=== PATIENT | female | born 1975 | race Hispanic/Latino ===

== ENCOUNTER 2017-08-02 18:16 | Emergency (ER) | payer OTHER, SELFPAY ==
[~2017-08-02 18:16] MED LIST: ISOVUE-370 76%-LOCM 1 ML ONE
[2017-08-02 18:44] LABS: #Basophils 0.1 thou/uL (0.0-0.2); #Eosinphils 0.1 thou/uL (0.0-0.7); #Lymphocytes 2.4 thou/uL (1.20-3.40); #Monocytes 0.5 thou/uL (0.11-0.59); #Neutrophils 5.1 thou/uL (1.40-6.50); %Eosinophils 1.7 % (0.0-10.0); %Lymphocytes 29.4 % (21.0-51.0); %Monocytes 5.9 % (0.0-10.0); Hematocrit 44.3 % (36.0-47.0); Mean Platelet Volume 7.4 fL (7.4-10.4); White Blood Cell (WBC) Count 8.2 thou/uL (4.8-10.8)
[2017-08-02 19:03] LABS: ALT (SGPT) 42 U/L (8-55); AST (SGOT) 21 U/L (5-34); Alkaline Phosphatase 94 U/L (40-150); Anion Gap 15 mmol/L (10-20); BUN (Urea Nitrogen) 9 mg/dL (7.0-18.7); Bilirubin, Total 0.3 mg/dL (0.2-1.2); CK (CPK) 56 U/L (29-168); Calc. Creatinine Clearance 0 mL/min (70-130); Calcium 9.9 mg/dL (7.8-10.44); Carbon Dioxide 25 mmol/L (22-29); Chloride 100 mmol/L (98-107); Estimated GFR-MDRD 76; Lipase 46 U/L (8-78); Protein, Total 7.1 g/dL (6.0-8.3)
[2017-08-02 19:08] LABS: Troponin I Less than 0.010 ng/mL (< 0.028)
[2017-08-02] MEDS ORDERED: Ondansetron HCl/PF 4 MG/2 ML Vial ONE ×2 (19:31→20:38)
[2017-08-02 20:33] LABS: Bilirubin Negative (Negative); Blood, Urine Negative (Negative); Glucose, Urine (Dipstick) 250 mg/dL (Negative); Ketone, Urine Negative (Negative); Nitrite Negative (Negative); Protein, Urine (Dipstick) Negative (Neg-Trace); Urobilinogen 0.2 mg/dL (0.2-1.0)
--- NOTE | 2017-08-02 20:38 | RAD ---
RADIOGRAPH CHEST 1 VIEW: HISTORY: A 42-year-old female with acute chest pain. FINDINGS: There are no air space densities, pulmonary edema, pneumothorax, or cardiomegaly. The lateral costo phrenic angles are sharp. IMPRESSION: No acute cardiopulmonary findings. jn [] POS: [facility]
[2017-08-02] MEDS ORDERED: Lidocaine Viscous Sol 2% 15 ml UD Cup ONE (22:13)
[2017-08-02] MEDS ORDERED: Mag-Al 1200 mg/1200 mg/30 ML UDCUP ONE (22:13)
--- NOTE | 2017-08-02 22:19 | CT ---
CTA THORAX WITH CONTRAST CTA ABDOMEN WITH CONTRAST: (Computed Tomographic Angiography, chest (noncoronary) with contrast material, and image post proces sing) (Computed Tomographic Angiography, abdomen with contrast material, and image post processing) HISTORY: A 42-year-old female with acute chest pain and acute epigastric pain that radiates to the back and f lank. Rule out aortic dissection. TECHNIQUE: IV injection of iodinated contrast: Administered. Arterial phase bolus chasing technique. Scan acquisition from top of top of aortic arch to iliac crests. Sagittal and coronal 3D MIP reconstructions. FINDINGS: There is very good opacification of all the pulmonary arteries and the entire aorta. There is no pu lmonary thromboembolism. No aortic dissection, atherosclerotic plaque, aneurysm, or rupture. The t horacic and lumbar vertebral body heights are maintained, with no high grade degenerative changes. The lungs are clear. No pleural effusion, pneumothorax, cardiomegaly, pericardial effusion, mediast inal lymphadenopathy, or hilar lymphadenopathy. No destructive osseous rib lesion or sternal lesion . Diffusely low hepatic attenuation, representing fatty liver. A 6 x 5 x 2 mm right renal lower po le calculus. No hydronephrosis bilaterally. The spleen, adrenals, and pancreas are normal. Normal retrocecal appendix. No free fluid identified in the abdominal cavity. Pelvis not included. No s mall bowel dilation. No major pathology of the visualized portions of the colon. No retroperitonea l lymphadenopathy. IMPRESSION: 1. Hepatic steatosis. 2. Status post cholecystectomy. 3. Right nephrolithiasis without obstructive uropathy. 4. Normal aorta. [place][] POS: [facility]
[2017-08-02] MEDS ORDERED: Insulin Regular 300 UNITS/3 ML VIAL ONE (22:47)
== END 2017-08-02 23:51 | disposition home or self-care (01) ==
LOC: ERS 18:16
DX: K20.9 Esophagitis, unspecified (principal); E11.9 Type 2 diabetes mellitus without complications; Z79.84 Long term (current) use of oral hypoglycemic drugs
CPT/HCPCS: 36415; 71010; 71275; 80053; 81003; 82550; 82553; 83690; 84484; 85025; 93005; 96361; 96372; 96374; 96375; 96376; J1815; J2270; J2405

== ENCOUNTER 2018-05-28 13:21 | Inpatient (IN) | payer SELFPAY ==
[2018-05-28] MEDS ORDERED: Acetaminophen 500 MG TAB ONE (13:51)
[2018-05-28 14:11] LABS: Bilirubin Negative (Negative); Blood, Urine Negative (Negative); Clarity CLEAR (Clear); Glucose, Urine (Dipstick) Negative (Negative); Leukocyte Negative (Negative); Nitrite Negative (Negative); Protein, Urine (Dipstick) Negative (Neg-Trace); Specific Gravity, Urine 1.013 (1.002-1.036); Urobilinogen 0.2 mg/dL (0.2-1.0); pH, Urine 5.5 (5.0-9.0)
[2018-05-28 14:11] LABS: Hemoglobin 14.3 g/dL (12.0-16.0); Mean Corpuscular HGB CONC 32.6 g/dL (32.0-36.0); Mean Corpuscular Hemoglobin 28.9 pg (27.0-31.0); Mean Corpuscular Volume 88.5 fL (78.0-98.0); Mean Platelet Volume 7.2 fL (7.4-10.4); Platelet Count 285 thou/uL (130-400); RBC Distribution Width 11.8 % (11.5-14.5); Red Blood Cell (RBC) Count 4.94 mill/uL (4.20-5.40); White Blood Cell (WBC) Count 9.3 thou/uL (4.8-10.8)
--- NOTE | 2018-05-28 14:22 | RAD ---
PORTABLE CHEST: Date: 05/28/18 HISTORY: Cough, chills, fever, headache. FINDINGS: Heart size and mediastinum are within normal limits. Lungs are clear of infiltrates. IMPRESSION: No active intrathoracic disease. POS: [facility]
[2018-05-28 14:26] LABS: Band 16 % (5-11); Eosinophils 1 % (0-10); Lymphocytes 8 % (21-51); MDiff Complete? YES; Monocytes 1 % (0-10); Neutrophil 74 % (42-75); PLT Morphology Comment Appears Adequate; RBC Morphology Normal
[2018-05-28 14:27] LABS: ALT (SGPT) 26 U/L (8-55); AST (SGOT) 17 U/L (5-34); Albumin 4.4 g/dL (3.5-5.0); Alkaline Phosphatase 120 U/L (40-150); Anion Gap 15 mmol/L (10-20); BUN (Urea Nitrogen) 8 mg/dL (7.0-18.7); Bilirubin, Total 0.7 mg/dL (0.2-1.2); Calc. Creatinine Clearance 0 mL/min (70-130); Calcium 10.2 mg/dL (7.8-10.44); Carbon Dioxide 25 mmol/L (22-29); Chloride 96 mmol/L (98-107); Estimated GFR-MDRD 82; Globulin 3.6 g/dL (2.4-3.5); Glucose 141 mg/dL (70-105); Sodium 132 mmol/L (136-145)
[2018-05-28] MEDS ORDERED: cefTRIAXone\\ROCEPHIN 1 GM VIAL ONE (15:12)
[2018-05-28] MEDS ORDERED: ISOVUE-370 76%-LOCM 1 ML ONE (15:22)
[2018-05-28 15:43] LABS: CSF Source CSF; Clarity Clear (Clear); Tube # 4
[2018-05-28 15:46] LABS: Color Of CSF Supernatant COLORLESS (Colorless); Tube # 1; Unspun CSF Color COLORLESS (Colorless)
[2018-05-28 15:48] LABS: RBC Count - Manual 3 /cumm (None Seen); WBC/NonHematics Count - Manual 0 /cumm (0-5)
[2018-05-28 15:59] LABS: CSF, Glucose 114 mg/dl (40-70); CSF, Protein 32 mg/dL (15-40)
--- NOTE | 2018-05-28 17:12 | CT ---
CT ARTERIOGRAM CHEST WITH IV CONTRAST AND 3D MIP IMAGIN05/28/18 HISTORY: Chest pain. Dyspnea. FINDINGS: There is good CT opacification of the pulmonary arteries and thoracic aorta with normal branching of the great vessels at the aortic arch. Minimal bibasilar atelectasis. No evidence of pneumothorax or p leural effusion. No mediastinal adenopathy. IMPRESSION: No CT evidence of pulmonary embolus. POS: [facility]
[2018-05-28] MEDS ORDERED: Dextrose 5% in Water 1,000 ML IV PRN (17:13)
[2018-05-28] MEDS ORDERED: Dextrose 50% Abboject 50 ML SYRINGE SLOW IVP PRN (17:13)
[2018-05-28] MEDS ORDERED: Zolpidem Tartrate 5 MG TAB PO PRN (17:13)
--- NOTE | 2018-05-28 17:14 | PDOC.EVN ---
Event Note - Event Note Event Note: CT chest -no PE. CSF neg
[2018-05-28] MEDS: Sodium Chloride 0.9% 1,000 ML IV SCH (17:53)
[2018-05-28 18:12] LABS: Lactic Acid 1.8 mmol/L (0.5-2.2)
--- NOTE | 2018-05-28 18:57 | HP ---
PRIMARY CARE PROVIDER: Dr. Ontiveros at [facility]. She does not know the doctor's name, but it is a [facility] physician. CHIEF COMPLAINT: Referred to the [facility] by [facility] for 1 week. HISTORY OF PRESENT ILLNESS: The patient got sick a week ago on Friday, today is . She has h ad hard shaking chills, headache. This is going on off and on for a week. The headache is frontal n uchal. It is bad at times, gone at other times. She has had whole body aches. She has had diarrhea for 7 days, maybe 5-6+ times a day, it is watery. She has had no vomiting. She has had some vague lower abdominal pain for 24 hours, some low back pain. Her fevers have been as high as 102. S he has had some shortness of breath with the present illness. PAST MEDICAL HISTORY: Really Pertinent for diabetes mellitus type 2 on metformin 1000 mg twice a day and glimepiride 2 mg t.i.d. ALLERGIES: She has no medical allergies. PAST SURGICAL HISTORY: Tubal ligation and cholecystectomy. SOCIAL HISTORY: She is , states she has a 1-month-old child. No tobacco. Alcohol about once a month. No illicit drugs. FAMILY HISTORY: Her father and a sister have diabetes. Otherwise, no inherited diseases. REVIEW OF SYSTEMS: General: She is lightheaded arising, but no fainting. Eyes: No double vision, blurred vision, flashing lights or photophobia. ENT: No ear pain or drainage. No nasal bleeding. No trouble swallowing. Cardiac: No pressure, chest pain, orthopnea, paroxysmal nocturnal dyspnea. Respiratory: No cough, wheezing or asthma. She is short of breath at times. Gastrointestinal: See present illness. Genitourinary: No hematuria, dysuria. Musculoskeletal: Diffuse body aches. No specific muscle or joint pain. No swelling in her extremities. Neurologic: No strokes, seizures or focal weakness. Psychiatric: No anxiety, depression. Skin: No bruising, bleeding or rash. Heme/ Lymph: No tender or swollen lymph nodes in axilla, inguinal or cervical area. PHYSICAL EXAMINATION: VITAL SIGNS: In the emergency department, she had blood pressure 149/95, pulse 126, respirations 20, and temperature 102.8. GENERAL: She is alert, oriented, obviously ill woman. HEENT: Pupils equal, round, and reactive. Extraocular movements are intact. Sclerae are white. Ty mpanic membranes clear. Nose is clear. Oral mucous membranes are dry. Tongue is dry. Dental hygie ne is good. NECK: No jugular venous distention, adenopathy or thyromegaly. Supple. She can touch her chin to h er chest. CHEST: Clear to auscultation and percussion. HEART: Regular rate and rhythm. First and second heart sounds are clear. There are no appreciated murmurs or gallops. ABDOMEN: Soft, bowel sounds are normal. There is no hepatosplenomegaly, no mass, no rebound, no bru its. EXTREMITIES: Reveal no cyanosis, clubbing or edema. PULSES: Carotid, radial, femoral, and dorsalis pedis pulses intact. SKIN: Warm and dry without bruises or rash. HEME/LYMPH: No tender or swollen lymph nodes in axilla, inguinal or cervical area. NEUROLOGICAL: Cranial nerves II-XII are intact. Deep tendon reflexes symmetric. Moves all extremit ies. LABORATORY AND X-RAY FINDINGS: Chest x-ray reviewed by me, no CHF, infiltrate, cardiomegaly, etc. E KG: I cannot find one, but the report states that it is sinus tachycardia at a rate of 127 with a lo w voltage QRS, otherwise normal. LABORATORY DATA: Urinalysis is clear with no evidence of any infection. Sodium was modestly low at 132, potassium 4.0, CO2 of 25, creatinine 0.77, BUN 8, blood sugar 141. Lactic acid 3.1. Liver func tion tests normal. CBC: Hemoglobin 9.3, white count 9.3 with a significant left shift of 16 bands, hemoglobin 14.3, platelet count 285,000. A lumbar puncture has been done and the fluid analysis is p ending. A D-dimer has been ordered and is pending. ADMITTING DIAGNOSES: 1. Sepsis syndrome with fever, tachycardia, shortness of breath, leukocytosis with left shift. 2. Diarrhea. 3. Lactic acidosis. 4. Diabetes mellitus type 2 without evidence of ketoacidosis. PLAN: Blood and urine cultures have been done. LP results are pending. Stool studies for C. diff, Shiga toxin and culture have been ordered. The patient has an Accu-Chek sliding scale ordered. Her oral medicines will be held at the present time. She will be started on a combination of Levaquin an d Rocephin in the acute phase. This is of course subject to change if the fluid indicates a ba cterial pneumonia; however, the fluids were clear and I suspect they will have no cells. Patient jimmie l require frequent reevaluations. Morphine sulfate will be used for pain if in fact the hydrocodone is not adequate.
[2018-05-28] MEDS: Ondansetron ODT 4 MG TAB PO PRN (20:15)
[2018-05-28] MEDS: Acetaminophen 325 MG TAB PO PRN (20:15)
[2018-05-28] MEDS: HYDROcodone/Acetaminophen 5/325 mg Tablet PO PRN (21:43)
[2018-05-28 22:59] VITALS: BMI 38.8
[2018-05-29] MEDS ORDERED: cefTRIAXone\\ROCEPHIN 2 GM in Sodium Chloride 0.9% 100 ML IVPB SCH (03:00)
[2018-05-29] MEDS: Acetaminophen 325 MG TAB PO PRN ×3 (03:27→18:29)
[2018-05-29] MEDS: HYDROcodone/Acetaminophen 5/325 mg Tablet PO PRN ×3 (04:21→21:45)
[2018-05-29] MEDS: Ondansetron ODT 4 MG TAB PO PRN (04:22)
[2018-05-29 05:05] LABS: Anion Gap 13 mmol/L (10-20); BUN (Urea Nitrogen) 6 mg/dL (7.0-18.7); Calc. Creatinine Clearance 130 mL/min (70-130); Calcium 9.1 mg/dL (7.8-10.44); Carbon Dioxide 24 mmol/L (22-29); Chloride 101 mmol/L (98-107); Estimated GFR-MDRD 85; Glucose 267 mg/dL (70-105); Potassium 3.6 mmol/L (3.5-5.1); Sodium 134 mmol/L (136-145)
[2018-05-29 06:20] LABS: Band 13 % (5-11); Hemoglobin 13.1 g/dL (12.0-16.0); Lymphocytes 2 % (21-51); MDiff Complete? YES; Mean Corpuscular Volume 87.9 fL (78.0-98.0); Mean Platelet Volume 7.2 fL (7.4-10.4); Monocytes 6 % (0-10); Neutrophil 79 % (42-75); PLT Morphology Comment Appears Adequate; Platelet Count 227 thou/uL (130-400); RBC Morphology Normal; Red Blood Cell (RBC) Count 4.51 mill/uL (4.20-5.40); White Blood Cell (WBC) Count 8.8 thou/uL (4.8-10.8)
[2018-05-29] MEDS: Sodium Chloride 0.9% 1,000 ML IV SCH ×2 (06:36→15:01)
[2018-05-29 08:48] LABS: Hemoglobin A1c 9.9 % (4.0-6.0)
[2018-05-29] MEDS ORDERED: Insulin Glargine 5 UNITS in Pre-Filled Syringe 1 EACH SC SCH (09:00)
[2018-05-29] MEDS: Morphine 4 MG/ML VIAL SLOW IVP PRN (12:48)
[2018-05-29] MEDS: HumaLOG 300 UNITS/3 ML VIAL SC PRN ×2 (12:49→16:55)
[2018-05-29] MEDS ORDERED: Cyclobenzaprine 10 MG TAB PO SCH (13:14)
[2018-05-29] MEDS ORDERED: Fioricet 325/50/40 mg Tablet PO PRN (13:14)
[2018-05-29] MEDS ORDERED: Metoclopramide HCl 10 MG/2 ML VIAL IVP SCH (13:15)
[2018-05-29] MEDS: Cyclobenzaprine 10 MG TAB PO SCH ×2 (15:02→21:44)
--- NOTE | 2018-05-29 21:02 | PDOC.PN ---
- Subjective Encounter Start Date: 05/29/18 Encounter Start Time: 11:00 Subjective: pt complains of headache - Objective Resuscitation Status: Resuscitation Status FULL:Full Resuscitation Vital Signs & Weight: Vital Signs (12 hours) Temp Pulse Resp BP BP Pulse Ox 05/29/18 16:00 98.5 F 91 20 113/74 94 L 05/29/18 12:34 101.1 F H 05/29/18 11:00 102.6 F H 114 H 16 125/79 93 L Weight Admit Weight 186 lb 3.2 oz Weight 186 lb I&O: 05/28/18 05/29/18 05/30/18 06:59 06:59 06:59 Intake Total 3560 Balance 3560 Result Diagrams: 05/30/18 07:02 05/30/18 07:02 Additional Labs: Accuchecks 05/29/18 05/29/18 05/29/18 19:22 16:09 11:25 POC Glucose 211 H 369 H 236 H 05/29/18 05/29/18 05/28/18 08:38 04:27 19:49 POC Glucose 244 H 256 H 202 H Phys Exam - Physical Examination HEENT: PERRLA, moist MMs, sclera anicteric, TM's clear, oral pharynx no lesions , 2+ tonsils Neck: no nodes, no JVD, supple, full ROM Respiratory: no wheezing, no rales, no rhonchi, wheezing present, clear to auscultation bilateral Cardiovascular: RRR, no significant murmur, no rub, gallop, irregular Gastrointestinal: soft, non-tender, no distention, positive bowel sounds has headache Dx/Plan (1) Sepsis Code(s): A41.9 - SEPSIS, UNSPECIFIED ORGANISM Status: Acute (2) Bacteremia Code(s): R78.81 - BACTEREMIA Status: Acute (3) Head ache Code(s): R51 - HEADACHE Status: Acute (4) Diabetes Code(s): E11.9 - TYPE 2 DIABETES MELLITUS WITHOUT COMPLICATIONS Status: Acute - Plan will continue abx for now, ua normal but cx indicated ecoli. ID consulted -: pt's headache tx with reglan and fiorcet. LP no indicated of meningits * . Review of Systems - Review of Systems Respiratory: negative: Cough, Dry, Shortness of Breath, Hemoptysis, SOB with Excertion, Pleuritic Pain, Sputum, Wheezing Cardiovascular: negative: chest pain, palpitations, orthopnea, paroxysmal nocturnal dyspnea, edema, light headedness, other Gastrointestinal: negative: Nausea, Vomiting, Abdominal Pain, Diarrhea, Constipation, Melena, Hematochezia, Other Genitourinary: negative: Dysuria, Frequency, Incontinence, Hematuria, Retention , Other - Medications/Allergies Allergies/Adverse Reactions: Allergies Allergy/AdvReac Type Severity Reaction Status Date / Time No Known Allergies Allergy Unverified 12/05/14 11:43 Medications: Current Medications Acetaminophen (Tylenol) 650 mg PO Q4H PRN PRN Reason: Headache/Fever or Pain Last Admin: 05/30/18 04:18 Dose: 650 mg Acetaminophen/Butalbital/Caffeine (Fioricet) 1 tab PO Q4H PRN PRN Reason: Headache Stop: 06/03/18 13:15 Hydrocodone Bitart/Acetaminophen ([place] 5/325) 1 tab PO Q4H PRN PRN Reason: Moderate Pain (4-6) Last Admin: 05/30/18 08:08 Dose: 1 tab Cyclobenzaprine HCl (Flexeril) 10 mg PO TID JOSÉ MIGUEL Last Admin: 05/30/18 08:08 Dose: 10 mg Dextrose/Water (Dextrose 50%) 25 gm SLOW IVP PRN PRN PRN Reason: Hypoglycemia Glucagon (Glucagon) 1 mg IM PRN PRN PRN Reason: Hypoglycemia Dextrose/Water (D5w) 1,000 mls @ 0 mls/hr IV .Q0M PRN PRN Reason: Hypoglycemia Sodium Chloride (Normal Saline 0.9%) 1,000 mls @ 100 mls/hr IV .Q10H JOSÉ MIGUEL Last Admin: 05/30/18 10:18 Dose: Not Given Ceftriaxone Sodium 2 gm/ (Sodium Chloride) 100 mls @ 200 mls/hr IVPB Q24HR [facility] Last Admin: 05/30/18 04:18 Dose: 100 mls Insulin Glargine 5 units/ (Miscellaneous Medication) 0.05 mls @ 0 mls/hr SC HS JOSÉ MIGUEL Insulin Glargine 10 units/ (Miscellaneous Medication) 0.1 mls @ 0 mls/hr SC QAM [facility] Last Admin: 05/30/18 08:11 Dose: 0.1 mls Insulin Human Lispro (Humalog) 0 units SC .MILD SLIDING SCALE PRN PRN Reason: Mild Correctional Scale Last Admin: 05/29/18 16:55 Dose: 6 unit Morphine Sulfate (Morphine) 4 mg SLOW IVP Q4H PRN PRN Reason: Moderate Pain (4-6) Last Admin: 05/29/18 12:48 Dose: 4 mg Ondansetron HCl (Zofran Odt) 4 mg PO Q6H PRN PRN Reason: Nausea/Vomiting Last Admin: 05/29/18 04:22 Dose: 4 mg Sodium Chloride (Flush - Normal Saline) 10 ml IVF Q12HR JOS[facility] MIGU[facility] Last Admin: 05/30/18 08:11 Dose: 10 ml Sodium Chloride (Flush - Normal Saline) 10 ml IVF PRN PRN PRN Reason: Saline Flush Zolpidem Tartrate (Ambien) 5 mg PO HSPRN PRN PRN Reason: Insomnia
[2018-05-30] MEDS: Sodium Chloride 0.9% 1,000 ML IV SCH ×3 (02:44→18:14)
[2018-05-30] MEDS: cefTRIAXone\\ROCEPHIN 2 GM in Sodium Chloride 0.9% 100 ML IVPB SCH (04:18)
[2018-05-30] MEDS: Acetaminophen 325 MG TAB PO PRN ×2 (04:18→14:47)
[2018-05-30 07:26] LABS: #Eosinphils 0.1 thou/uL (0.0-0.7); #Lymphocytes 1.1 thou/uL (1.20-3.40); #Monocytes 0.3 thou/uL (0.11-0.59); %Basophils 0.3 % (0.0-1.0); %Eosinophils 1.1 % (0.0-10.0); %Lymphocytes 20.4 % (21.0-51.0); %Monocytes 6.1 % (0.0-10.0); %Neutrophils 72.3 % (42.0-75.0); Hemoglobin 11.2 g/dL (12.0-16.0); Mean Corpuscular Hemoglobin 30.1 pg (27.0-31.0); Mean Corpuscular Volume 88.6 fL (78.0-98.0); Mean Platelet Volume 7.1 fL (7.4-10.4); Platelet Count 181 thou/uL (130-400); RBC Distribution Width 11.7 % (11.5-14.5); Red Blood Cell (RBC) Count 3.71 mill/uL (4.20-5.40); White Blood Cell (WBC) Count 5.5 thou/uL (4.8-10.8)
[2018-05-30 07:38] LABS: Anion Gap 5 mmol/L (10-20); BUN (Urea Nitrogen) 5 mg/dL (7.0-18.7); CRP (Inflammatory) 19.77 mg/dL (= or < 0.5); Calc. Creatinine Clearance 148 mL/min (70-130); Calcium 7.9 mg/dL (7.8-10.44); Carbon Dioxide 30 mmol/L (22-29); Chloride 103 mmol/L (98-107); Estimated GFR-MDRD Greater than 90; Glucose 208 mg/dL (70-105); Potassium 3.7 mmol/L (3.5-5.1); Sodium 134 mmol/L (136-145)
[2018-05-30] MEDS: Cyclobenzaprine 10 MG TAB PO SCH ×3 (08:08→20:35)
[2018-05-30] MEDS: HYDROcodone/Acetaminophen 5/325 mg Tablet PO PRN (08:08)
[2018-05-30] MEDS: Insulin Glargine 10 UNITS in Pre-Filled Syringe 1 EACH SC SCH (08:11)
--- NOTE | 2018-05-30 14:12 | PDOC.PN ---
- Subjective Encounter Start Date: 05/30/18 Encounter Start Time: 11:30 Subjective: pt up in bed states she feels much better today - Objective Resuscitation Status: Resuscitation Status FULL:Full Resuscitation Vital Signs & Weight: Vital Signs (12 hours) Temp Pulse Resp BP BP Pulse Ox 05/30/18 11:31 99.3 F 92 20 111/72 93 L 05/30/18 08:00 98.6 F 96 18 97 05/30/18 07:43 98.6 F 96 18 133/82 93 L 05/30/18 04:00 101.5 F H 102 H 18 122/75 92 L Weight Admit Weight 186 lb 3.2 oz Weight 186 lb I&O: 05/29/18 05/30/18 05/31/18 06:59 06:59 06:59 Intake Total 3560 480 Balance 3560 480 Result Diagrams: 05/30/18 07:02 05/30/18 07:02 Additional Labs: Accuchecks 05/30/18 05/30/18 05/29/18 11:29 04:22 19:22 POC Glucose 262 H 200 H 211 H 05/29/18 16:09 POC Glucose 369 H Phys Exam - Physical Examination HEENT: PERRLA, moist MMs, sclera anicteric, TM's clear, oral pharynx no lesions , 2+ tonsils Neck: no nodes, no JVD, supple, full ROM Respiratory: no wheezing, no rales, no rhonchi, wheezing present, clear to auscultation bilateral Cardiovascular: RRR, no significant murmur, no rub, gallop, irregular Gastrointestinal: soft, non-tender, no distention, positive bowel sounds Musculoskeletal: no edema, pulses present, edema present Dx/Plan (1) Sepsis Code(s): A41.9 - SEPSIS, UNSPECIFIED ORGANISM Status: Acute (2) Bacteremia Code(s): R78.81 - BACTEREMIA Status: Acute (3) Head ache Code(s): R51 - HEADACHE Status: Acute (4) Diabetes Code(s): E11.9 - TYPE 2 DIABETES MELLITUS WITHOUT COMPLICATIONS Status: Acute - Plan spoke with ID who recommended ctabd/pel to rule out any -: stone. will continue abx and fluids. she feels better today -: insulin increased for better sugar control * . Review of Systems - Review of Systems ENT: negative: Ear Pain, Ear Discharge, Nose Pain, Nose Discharge, Nose Congestion, Mouth Pain, Mouth Swelling, Throat Pain, Throat Swelling, Other Cardiovascular: negative: chest pain, palpitations, orthopnea, paroxysmal nocturnal dyspnea, edema, light headedness, other Gastrointestinal: negative: Nausea, Vomiting, Abdominal Pain, Diarrhea, Constipation, Melena, Hematochezia, Other Genitourinary: negative: Dysuria, Frequency, Incontinence, Hematuria, Retention , Other - Medications/Allergies Allergies/Adverse Reactions: Allergies Allergy/AdvReac Type Severity Reaction Status Date / Time No Known Allergies Allergy Unverified 12/05/14 11:43 Medications: Current Medications Acetaminophen (Tylenol) 650 mg PO Q4H PRN PRN Reason: Headache/Fever or Pain Last Admin: 05/30/18 04:18 Dose: 650 mg Acetaminophen/Butalbital/Caffeine (Fioricet) 1 tab PO Q4H PRN PRN Reason: Headache Stop: 06/03/18 13:15 Hydrocodone Bitart/Acetaminophen ([place] 5/325) 1 tab PO Q4H PRN PRN Reason: Moderate Pain (4-6) Last Admin: 05/30/18 08:08 Dose: 1 tab Cyclobenzaprine HCl (Flexeril) 10 mg PO TID JOSÉ MIGUEL Last Admin: 05/30/18 08:08 Dose: 10 mg Dextrose/Water (Dextrose 50%) 25 gm SLOW IVP PRN PRN PRN Reason: Hypoglycemia Glucagon (Glucagon) 1 mg IM PRN PRN PRN Reason: Hypoglycemia Dextrose/Water (D5w) 1,000 mls @ 0 mls/hr IV .Q0M PRN PRN Reason: Hypoglycemia Sodium Chloride (Normal Saline 0.9%) 1,000 mls @ 100 mls/hr IV .Q10H JOS[facility] MIGU[facility] Last Admin: 05/30/18 10:18 Dose: Not Given Ceftriaxone Sodium 2 gm/ (Sodium Chloride) 100 mls @ 200 mls/hr IVPB Q24HR JOSÉ MIGUEL Last Admin: 05/30/18 04:18 Dose: 100 mls Insulin Glargine 5 units/ (Miscellaneous Medication) 0.05 mls @ 0 mls/hr SC HS JOSÉ MIGUEL Insulin Glargine 10 units/ (Miscellaneous Medication) 0.1 mls @ 0 mls/hr SC QAM [facility] Last Admin: 05/30/18 08:11 Dose: 0.1 mls Insulin Human Lispro (Humalog) 0 units SC .MILD SLIDING SCALE PRN PRN Reason: Mild Correctional Scale Last Admin: 05/29/18 16:55 Dose: 6 unit Morphine Sulfate (Morphine) 4 mg SLOW IVP Q4H PRN PRN Reason: Moderate Pain (4-6) Last Admin: 05/29/18 12:48 Dose: 4 mg Ondansetron HCl (Zofran Odt) 4 mg PO Q6H PRN PRN Reason: Nausea/Vomiting Last Admin: 05/29/18 04:22 Dose: 4 mg Sodium Chloride (Flush - Normal Saline) 10 ml IVF Q12HR [facility] Last Admin: 05/30/18 08:11 Dose: 10 ml Sodium Chloride (Flush - Normal Saline) 10 ml IVF PRN PRN PRN Reason: Saline Flush Zolpidem Tartrate (Ambien) 5 mg PO HSPRN PRN PRN Reason: Insomnia
--- NOTE | 2018-05-30 15:11 | CT ---
CT ABDOMEN AND PELVIS WITHOUT CONTRAST: HISTORY: Nephrolithiasis, nausea, vomiting, fever. FINDINGS: Absence of oral and IV contrast reduces the sensitivity of the exam, particularly for evaluation of s olid organs involved. There are tiny bilateral pleural effusions with adjacent atelectatic changes. No free air or free fl uid is seen in the abdomen. The patient is post cholecystectomy. The liver demonstrates decreased a ttenuation compared to the spleen consistent with fatty infiltration. Bilateral renal calculi are present. No calculi are seen in the urinary bladder or the right ureter. There is a 2 mm calcific density in the pelvis which may either represent a phlebolith or a nonobst ructing calculus at the left UVJ. There are vascular calcifications without evidence of aneurysmal dilatation of the abdominal aorta. Uterus is present. Mild degenerative changes are seen in the spine. A normal-appearing appendix is seen. A tiny amount of free fluid is seen in the pelvis. IMPRESSION: 1. Nonobstructing bilateral renal calculi. 2. A 2 mm nonobstructing calculus at the left ureterovesical junction versus pelvic phlebolith. 3. Fatty liver. 4. Tiny pleural effusions with adjacent atelectatic changes. POS: [facility]
--- NOTE | 2018-05-30 18:15 | CON ---
DATE OF CONSULTATION: 05/30/2018 REASON FOR CONSULTATION: Bacteremia. HISTORY OF PRESENT ILLNESS: A 43-year-old, who has a history of type 2 diabetes and was admitted wit h a 1-week history of chills and headaches and abdominal pain. She describes the abdominal pain as d iffuse and not favoring one or the other site. She also describes back pain concomitantly. The [place] ent had some diarrhea for many days which was watery, but no blood, no vomiting. On arrival, she had a blood pressure 140/90 and she was tachycardic with a temperature of 102.8. She had a spinal tap b ecause of concern of meningitis, but that was ruled out. Urinalysis was fairly unremarkable. Initia l impression was sepsis of unknown etiology. She was given broad spectrum coverage and then we have now positive urine and blood cultures with the same organism, which is E. coli with a broad susceptib ility profile. The urine culture had [id number] CFUs per mL. Repeat blood cultures from 8 have been negative thus far. The diarrhea has ceased and the patient is currently receiving ceftri axone. She is still feeling unwell, but better than before. No headaches anymore, maybe mild headac hes at this time. No visual symptoms, no nasal symptoms or earache. No sore throat, odynophagia, or dysphagia. Mild cough. No chest pain, no dyspnea. The abdominal pain is improved. She has never had dysuria or hematuria. No joint symptoms. No skin disorder. PAST MEDICAL HISTORY: Includes type 2 diabetes, previous history of nephrolithiasis. This was a ser endipitous finding few years ago when she had a CT scan of her abdomen. ALLERGIES: None. PAST SURGICAL HISTORY: Tubal ligation, cholecystectomy. SOCIAL HISTORY: , 1-month child, never smoker. FAMILY HISTORY: Diabetes. CURRENT MEDICATIONS: Include Tylenol, Fioricet, [place], ceftriaxone, Flexeril, glucagon, insulin, Zof ran, zolpidem. PHYSICAL EXAMINATION: VITAL SIGNS: T-max 101.5-102.6, now 99.3; blood pressure 111/72; pulse 92; respirations 18-20; O2 sa t 93% to 97%. SKIN: Not remarkable. The patient has a peripheral IV access and is voiding spontaneously. No lymp hadenopathy. HEENT: Ocular movements conjugate. Nasal passages patent. Oral cavity normal. NECK: Supple. LUNGS: Symmetric clear breath sounds. HEART: S1, S2, regular rate. ABDOMEN: Soft with mild tenderness in various areas. No rebound tenderness, no organomegaly, no asc ites. No bladder distention. Some CVA tenderness. EXTREMITIES: No joint inflammatory activity. NEUROLOGIC: Nonfocal including cognitive function. LABORATORY DATA AND IMAGING: White cell count was 9.3 and now 5.5, hemoglobin was 14 and now 11, MCV 88, platelets 181. Differential 74% neutrophils, 16% bands, now 72% neutrophils, 20% lymphocytes. INR was not done. Chemistry on arrival with sodium 132, creatinine 0.77, calcium 10.2. Liver profil e normal. Albumin 4.4 and globulin 3.6. Urinalysis was normal. CSF was not remarkable. Microbiolo gy panel described above and she had a CT angio on arrival of the chest, which was not remarkable. N ow, she has had an abdomen and pelvis CT. I have reviewed the scan, the interpretation is not availa ble yet, but I was able to see areas of nephrolithiasis in the right kidney within the organ itself i n the pelvis. The right kidney seems to be bigger than the left. I am not sure about the presence o f ureteral dilation, waiting on that. The bladder was quite full of urine. ASSESSMENT: 1. Type 2 diabetes. 2. History of nephrolithiasis. 3. Bacteremia with positive urine cultures. DISCUSSION: The patient has a distended bladder and might have distention of the ureter on the right side, I am not sure about that. She does have stones in the right kidney and I am waiting for the f inal interpretation. Despite of the normal urinalysis, the most likely scenario here is hyperacute p yelonephritis without actual cystitis. She may have a neurogenic bladder with urinary retention as a prodrome to this syndrome. We will wait for the final interpretation of the CT scan and then procee d accordingly. This patient will be eligible for outpatient therapy with oral ciprofloxacin for 2 we eks, but the main issue here is to define the urological substrate of this infection. It seems like she has been hyperacute and without actual cystitis. That is why she did not have symptoms of dysuri a. The other possibility is that she has neuropathy in the abdominal area and therefore cannot feel the symptoms are typically associated with cystitis due to her diabetes mellitus. We will wait for t he final interpretation of the CT study.
[2018-05-30] MEDS ORDERED: Insulin Glargine 5 UNITS in Pre-Filled Syringe 1 EACH SC SCH (21:00)
[2018-05-31] MEDS: Acetaminophen 325 MG TAB PO PRN ×2 (00:27→08:22)
[2018-05-31] MEDS: Morphine 4 MG/ML VIAL SLOW IVP PRN (00:27)
[2018-05-31] MEDS: cefTRIAXone\\ROCEPHIN 2 GM in Sodium Chloride 0.9% 100 ML IVPB SCH (04:05)
[2018-05-31] MEDS: Sodium Chloride 0.9% 1,000 ML IV SCH ×2 (05:30→11:28)
[2018-05-31 05:32] LABS: #Eosinphils 0.1 thou/uL (0.0-0.7); #Lymphocytes 1.4 thou/uL (1.20-3.40); #Monocytes 0.3 thou/uL (0.11-0.59); #Neutrophils 4.4 thou/uL (1.40-6.50); %Basophils 0.4 % (0.0-1.0); %Eosinophils 1.6 % (0.0-10.0); %Lymphocytes 22.4 % (21.0-51.0); %Monocytes 4.4 % (0.0-10.0); %Neutrophils 71.2 % (42.0-75.0); Hemoglobin 10.9 g/dL (12.0-16.0); Mean Corpuscular HGB CONC 33.6 g/dL (32.0-36.0); Mean Corpuscular Hemoglobin 29.8 pg (27.0-31.0); Mean Corpuscular Volume 88.8 fL (78.0-98.0); Mean Platelet Volume 7.2 fL (7.4-10.4); Platelet Count 207 thou/uL (130-400); RBC Distribution Width 11.9 % (11.5-14.5); Red Blood Cell (RBC) Count 3.64 mill/uL (4.20-5.40); White Blood Cell (WBC) Count 6.2 thou/uL (4.8-10.8)
[2018-05-31] MEDS: Insulin Glargine 10 UNITS in Pre-Filled Syringe 1 EACH SC SCH (08:22)
[2018-05-31] MEDS: Cyclobenzaprine 10 MG TAB PO SCH ×3 (08:24→20:25)
[2018-05-31] MEDS ORDERED: Enoxaparin Sodium 40 MG/0.4 ML SYRINGE SC SCH (10:45)
[2018-05-31] MEDS: HumaLOG 300 UNITS/3 ML VIAL SC PRN (11:29)
--- NOTE | 2018-05-31 17:28 | PDOC.PN ---
- Subjective Encounter Start Date: 05/31/18 Encounter Start Time: 11:00 Subjective: pt up in bed no complains - Objective Resuscitation Status: Resuscitation Status FULL:Full Resuscitation Vital Signs & Weight: Vital Signs (12 hours) Temp Pulse Resp BP Pulse Ox 05/31/18 11:30 98.5 F 05/31/18 08:00 101.1 F H 114 H 18 139/84 95 Weight Admit Weight 186 lb 3.2 oz Weight 186 lb I&O: 05/30/18 05/31/18 06/01/18 06:59 06:59 06:59 Intake Total 720 480 Balance 720 480 Result Diagrams: 05/31/18 05:09 05/30/18 07:02 Additional Labs: Accuchecks 05/31/18 05/31/18 11:28 06:11 POC Glucose 307 H 159 H Phys Exam - Physical Examination HEENT: PERRLA, moist MMs, sclera anicteric, TM's clear, oral pharynx no lesions , 2+ tonsils Neck: no nodes, no JVD, supple, full ROM Respiratory: no wheezing, no rales, no rhonchi, wheezing present, clear to auscultation bilateral Cardiovascular: RRR, no significant murmur, no rub, gallop, irregular Gastrointestinal: soft, non-tender, no distention, positive bowel sounds Dx/Plan (1) Sepsis Code(s): A41.9 - SEPSIS, UNSPECIFIED ORGANISM Status: Acute (2) Bacteremia Code(s): R78.81 - BACTEREMIA Status: Acute (3) Head ache Code(s): R51 - HEADACHE Status: Acute (4) Diabetes Code(s): E11.9 - TYPE 2 DIABETES MELLITUS WITHOUT COMPLICATIONS Status: Acute - Plan pt still had fever this am -: will continue abx for now -: pt clinically is improving -: headache is better -: ct indicated stones non obst, bladder scan indicated 150ml * . Review of Systems - Review of Systems Respiratory: negative: Cough, Dry, Shortness of Breath, Hemoptysis, SOB with Excertion, Pleuritic Pain, Sputum, Wheezing Cardiovascular: negative: chest pain, palpitations, orthopnea, paroxysmal nocturnal dyspnea, edema, light headedness, other Gastrointestinal: negative: Nausea, Vomiting, Abdominal Pain, Diarrhea, Constipation, Melena, Hematochezia, Other Genitourinary: negative: Dysuria, Frequency, Incontinence, Hematuria, Retention , Other - Medications/Allergies Allergies/Adverse Reactions: Allergies Allergy/AdvReac Type Severity Reaction Status Date / Time No Known Allergies Allergy Unverified 12/05/14 11:43 Medications: Current Medications Acetaminophen (Tylenol) 650 mg PO Q4H PRN PRN Reason: Headache/Fever or Pain Last Admin: 05/31/18 08:22 Dose: 650 mg Acetaminophen/Butalbital/Caffeine (Fioricet) 1 tab PO Q4H PRN PRN Reason: Headache Stop: 06/03/18 13:15 Last Admin: 05/31/18 08:22 Dose: 1 tab Hydrocodone Bitart/Acetaminophen ([place] 5/325) 1 tab PO Q4H PRN PRN Reason: Moderate Pain (4-6) Last Admin: 05/30/18 08:08 Dose: 1 tab Cyclobenzaprine HCl (Flexeril) 10 mg PO TID [facility] Last Admin: 05/31/18 14:57 Dose: 10 mg Dextrose/Water (Dextrose 50%) 25 gm SLOW IVP PRN PRN PRN Reason: Hypoglycemia Enoxaparin Sodium (Lovenox) 40 mg SC 0900 [facility] Glucagon (Glucagon) 1 mg IM PRN PRN PRN Reason: Hypoglycemia Dextrose/Water (D5w) 1,000 mls @ 0 mls/hr IV .Q0M PRN PRN Reason: Hypoglycemia Sodium Chloride (Normal Saline 0.9%) 1,000 mls @ 100 mls/hr IV .Q10H [facility] Last Admin: 05/31/18 11:28 Dose: 1,000 mls Ceftriaxone Sodium 2 gm/ (Sodium Chloride) 100 mls @ 200 mls/hr IVPB Q24HR [facility] Last Admin: 05/31/18 04:05 Dose: 100 mls Insulin Glargine 5 units/ (Miscellaneous Medication) 0.05 mls @ 0 mls/hr SC HS [facility] Last Admin: 05/30/18 20:35 Dose: 0.05 mls Insulin Glargine 10 units/ (Miscellaneous Medication) 0.1 mls @ 0 mls/hr SC QAM [facility] Last Admin: 05/31/18 08:22 Dose: 0.1 mls Insulin Human Lispro (Humalog) 0 units SC .MILD SLIDING SCALE PRN PRN Reason: Mild Correctional Scale Last Admin: 05/31/18 11:29 Dose: 5 unit Ondansetron HCl (Zofran Odt) 4 mg PO Q6H PRN PRN Reason: Nausea/Vomiting Last Admin: 05/29/18 04:22 Dose: 4 mg Sodium Chloride (Flush - Normal Saline) 10 ml IVF Q12HR [facility] Last Admin: 05/31/18 08:24 Dose: Not Given Sodium Chloride (Flush - Normal Saline) 10 ml IVF PRN PRN PRN Reason: Saline Flush Zolpidem Tartrate (Ambien) 5 mg PO HSPRN PRN PRN Reason: Insomnia
[2018-05-31] MEDS: HYDROcodone/Acetaminophen 5/325 mg Tablet PO PRN (20:24)
[2018-05-31] MEDS: Insulin Glargine 8 UNITS in Pre-Filled Syringe 1 EACH SC SCH (20:25)
[2018-06-01] MEDS: Sodium Chloride 0.9% 1,000 ML IV SCH ×2 (03:01→11:56)
[2018-06-01] MEDS: cefTRIAXone\\ROCEPHIN 2 GM in Sodium Chloride 0.9% 100 ML IVPB SCH (03:03)
[2018-06-01] MEDS: Enoxaparin Sodium 40 MG/0.4 ML SYRINGE SC SCH (09:35)
[2018-06-01] MEDS: Cyclobenzaprine 10 MG TAB PO SCH ×3 (09:35→21:03)
[2018-06-01] MEDS: Insulin Glargine 14 UNITS in Pre-Filled Syringe 1 EACH SC SCH (09:37)
[2018-06-01] MEDS: HumaLOG 300 UNITS/3 ML VIAL SC PRN ×2 (11:57→17:23)
--- NOTE | 2018-06-01 15:53 | PDOC.PN ---
- Subjective Encounter Start Date: 06/01/18 Encounter Start Time: 10:30 Subjective: pt up in bed no complains - Objective Resuscitation Status: Resuscitation Status FULL:Full Resuscitation Vital Signs & Weight: Vital Signs (12 hours) Temp Pulse Resp BP Pulse Ox 06/01/18 08:00 98.8 F 93 16 93 L 06/01/18 07:55 98.8 F 93 16 135/82 95 Weight Admit Weight 186 lb 3.2 oz Weight 186 lb I&O: 05/31/18 06/01/18 06/02/18 06:59 06:59 06:59 Intake Total 720 720 Balance 720 720 Result Diagrams: 05/31/18 05:09 05/30/18 07:02 Additional Labs: Accuchecks 06/01/18 06/01/18 05/31/18 11:24 05:26 19:27 POC Glucose 310 H 234 H 213 H 05/31/18 16:39 POC Glucose 186 H Phys Exam - Physical Examination HEENT: PERRLA, moist MMs, sclera anicteric, TM's clear, oral pharynx no lesions , 2+ tonsils Neck: no nodes, no JVD, supple, full ROM Respiratory: no wheezing, no rales, no rhonchi, wheezing present, clear to auscultation bilateral Cardiovascular: RRR, no significant murmur, no rub, gallop, irregular Gastrointestinal: soft, non-tender, no distention, positive bowel sounds Dx/Plan (1) Sepsis Code(s): A41.9 - SEPSIS, UNSPECIFIED ORGANISM Status: Acute (2) Bacteremia Code(s): R78.81 - BACTEREMIA Status: Acute (3) Head ache Code(s): R51 - HEADACHE Status: Acute (4) Diabetes Code(s): E11.9 - TYPE 2 DIABETES MELLITUS WITHOUT COMPLICATIONS Status: Acute - Plan pt needs to be afebrile for 24hr before discharge -: will continue abx for now -: possible discharge in am * . Review of Systems - Review of Systems Respiratory: negative: Cough, Dry, Shortness of Breath, Hemoptysis, SOB with Excertion, Pleuritic Pain, Sputum, Wheezing Cardiovascular: negative: chest pain, palpitations, orthopnea, paroxysmal nocturnal dyspnea, edema, light headedness, other Gastrointestinal: negative: Nausea, Vomiting, Abdominal Pain, Diarrhea, Constipation, Melena, Hematochezia, Other Genitourinary: negative: Dysuria, Frequency, Incontinence, Hematuria, Retention , Other - Medications/Allergies Allergies/Adverse Reactions: Allergies Allergy/AdvReac Type Severity Reaction Status Date / Time No Known Allergies Allergy Unverified 12/05/14 11:43 Medications: Current Medications Acetaminophen (Tylenol) 650 mg PO Q4H PRN PRN Reason: Headache/Fever or Pain Last Admin: 05/31/18 08:22 Dose: 650 mg Acetaminophen/Butalbital/Caffeine (Fioricet) 1 tab PO Q4H PRN PRN Reason: Headache Stop: 06/03/18 13:15 Last Admin: 05/31/18 08:22 Dose: 1 tab Hydrocodone Bitart/Acetaminophen ([place] 5/325) 1 tab PO Q4H PRN PRN Reason: Moderate Pain (4-6) Last Admin: 05/31/18 20:24 Dose: 1 tab Cyclobenzaprine HCl (Flexeril) 10 mg PO TID [facility] Last Admin: 06/01/18 09:35 Dose: 10 mg Dextrose/Water (Dextrose 50%) 25 gm SLOW IVP PRN PRN PRN Reason: Hypoglycemia Enoxaparin Sodium (Lovenox) 40 mg SC 0900 [facility] Last Admin: 06/01/18 09:35 Dose: 40 mg Glucagon (Glucagon) 1 mg IM PRN PRN PRN Reason: Hypoglycemia Dextrose/Water (D5w) 1,000 mls @ 0 mls/hr IV .Q0M PRN PRN Reason: Hypoglycemia Sodium Chloride (Normal Saline 0.9%) 1,000 mls @ 100 mls/hr IV .Q10H [facility] Last Admin: 06/01/18 11:56 Dose: 1,000 mls Ceftriaxone Sodium 2 gm/ (Sodium Chloride) 100 mls @ 200 mls/hr IVPB Q24HR [facility] Last Admin: 06/01/18 03:03 Dose: 100 mls Insulin Glargine 8 units/ (Miscellaneous Medication) 0.08 mls @ 0 mls/hr SC HS [facility] Last Admin: 05/31/18 20:25 Dose: 0.08 mls Insulin Glargine 14 units/ (Miscellaneous Medication) 0.14 mls @ 0 mls/hr SC QAM [facility] Last Admin: 06/01/18 09:37 Dose: 0.14 mls Insulin Human Lispro (Humalog) 0 units SC .MILD SLIDING SCALE PRN PRN Reason: Mild Correctional Scale Last Admin: 06/01/18 11:57 Dose: 310 unit Ondansetron HCl (Zofran Odt) 4 mg PO Q6H PRN PRN Reason: Nausea/Vomiting Last Admin: 05/29/18 04:22 Dose: 4 mg Sodium Chloride (Flush - Normal Saline) 10 ml IVF Q12HR [facility] Last Admin: 06/01/18 09:35 Dose: 10 ml Sodium Chloride (Flush - Normal Saline) 10 ml IVF PRN PRN PRN Reason: Saline Flush Zolpidem Tartrate (Ambien) 5 mg PO HSPRN PRN PRN Reason: Insomnia
[2018-06-01] MEDS: Acetaminophen 325 MG TAB PO PRN (17:22)
--- NOTE | 2018-06-01 19:23 | PRG ---
DATE OF SERVICE: 06/01/2018 SUBJECTIVE: Ms. Earl is feeling better. Finally, she has no shortness of breath, no abdominal pain, no diarrhea. No genitourinary symptoms anymore. PHYSICAL EXAMINATION: VITAL SIGNS: T-max 100, now 98.8, postvoid residual was zero. GENERAL: Awake, alert. LUNGS: Clear. HEART: S1, S2, regular rate. ABDOMEN: Soft, without tenderness. LABORATORY DATA: White cell count 6.2, hemoglobin 10.9, platelets 207. Microbiology with E. coli wi th a very broad susceptibility profile. ASSESSMENT AND DISCUSSION: Type 2 diabetes, nephrolithiasis, bacteremia with positive urine cultures . The patient has hyperacute pyelonephritis associated with diabetes mellitus type [address] colonization, nonobstructive nephrolithiasis. At this point, I would consider transition to oral quinolone for discharge planning and treat for about 2 weeks. It does not appear that she has any pr oblem that needs urological intervention at this point in time.
[2018-06-01] MEDS: Insulin Glargine 8 UNITS in Pre-Filled Syringe 1 EACH SC SCH (21:03)
[2018-06-02] MEDS: cefTRIAXone\\ROCEPHIN 2 GM in Sodium Chloride 0.9% 100 ML IVPB SCH (02:32)
[2018-06-02] MEDS ORDERED: Cipro 250 MG TAB PO SCH (07:40)
[2018-06-02] MEDS ORDERED: Ciprofloxacin 500 MG TAB PO SCH ×2 (08:00→20:00)
[2018-06-02] MEDS: Cyclobenzaprine 10 MG TAB PO SCH (09:10)
[2018-06-02] MEDS: Insulin Glargine 14 UNITS in Pre-Filled Syringe 1 EACH SC SCH (09:10)
[2018-06-02] MEDS: Enoxaparin Sodium 40 MG/0.4 ML SYRINGE SC SCH (09:10)
[2018-06-02 11:59] VITALS: BP 158/99; TEMP 98.3
--- NOTE | 2018-06-02 23:20 | DIS ---
DATE OF ADMISSION: 05/28/2018 DATE OF DISCHARGE: 06/02/2018 DISCHARGE DIAGNOSES: As of the followin. Sepsis. 2. Bacteremia. 3. Urinary tract infection/pyelonephritis. 4. Headache. 5. Diabetes. HISTORY OF PRESENT ILLNESS: The patient is a very pleasant 43-year-old female who initially presente d to the hospital with complaints of shakes, chills, and headaches. The patient initially underwent LP due to the headache and fevers; however, the LP was negative. She also had a chest CAT scan that indicated no evidence of pulmonary embolism. She also had a CT abdomen and pelvis without contrast, renal protocol, which did indicate that she does have some nonobstructing bilateral renal calculi, 2- mm nonobstructing calculus in the left ureterovesicular junction versus pelvic phlebolith. The patie nt initially was treated with broad spectrum antibiotics which were then tapered. Her urine dipstick was negative; however, the urine culture indicated E. coli and also her blood cultures were positive for E. coli. She was treated initially with broad spectrum, which was narrowed to ceftriaxone and s he was discharged home with ciprofloxacin for about 2 weeks. She was also seen by Infectious Disease , who thought that maybe her bacteremia and UTI is most likely secondary to obstruction. Given the f act that she is a diabetic and she did have a distended bladder. We did scan her bladder, she did no t have much of a residual. Again, she will follow up with her PCP as an outpatient. DISCHARGE MEDICATIONS: As of the following: Glimepiride 3 tabs q.a.m., metformin 1000 b.i.d., and c iprofloxacin 500 mg p.o. b.i.d. for 2 weeks. PHYSICAL EXAMINATION: VITAL SIGNS: 98.3, 88, 16, 94% on room air, 158/99. GENERAL: She is awake, alert, and oriented x3. She does not appear in distress. CARDIOVASCULAR: S1, S2 present. No murmurs, rubs, or gallops. ABDOMEN: Soft, nontender. Bowel sounds are present x2. EXTREMITIES: No edema. DISCHARGE INSTRUCTIONS: She will be discharged home. Follow up with PCP.
== END 2018-06-02 12:02 | disposition home or self-care (01) | DRG 872 ==
LOC: ERS 13:21 → T4-A 17:16
PROVIDERS: ADMIT Internal Medicine; ATTEND Internal Medicine
DX: A41.9 Sepsis, unspecified organism (principal); E87.2 Acidosis; N39.0 Urinary tract infection, site not specified; E11.9 Type 2 diabetes mellitus without complications; R19.7 Diarrhea, unspecified; N20.0 Calculus of kidney; B96.20 Unspecified Escherichia coli [E. coli] as the cause of diseases classified elsewhere; Z79.84 Long term (current) use of oral hypoglycemic drugs; Z83.3 Family history of diabetes mellitus
CPT/HCPCS: 36415; 36416; 62270; 71045; 71275; 74176; 80048; 80053; 81003; 82533; 82945; 83036; 83605; 84157; 85025; 85379; 85652; 86140; 87040; 87070; 87077; 87086; 87149; 87186; 87205; 89051; 93005; 96360; 96361; 96365; 96367; A4216; J0696; J1650; J1956; J2270; J3370; J7050; Q0162

== ENCOUNTER 2021-07-14 19:09 | Emergency (ER) | payer MEDICAID ==
[2021-07-14] MEDS ORDERED: Lidocaine 1% (PF) 30 ML VIAL ONE (19:32)
[2021-07-14] MEDS ORDERED: Lidocaine 1% PF 5 ML VIAL ONE ×2 (19:34→19:36)
[2021-07-14] MEDS ORDERED: Morphine 4 MG/ML VIAL ONE (19:43)
== END 2021-07-14 20:50 | disposition home or self-care (01) ==
LOC: ERS 19:09
DX: L02.416 Cutaneous abscess of left lower limb (principal); E11.9 Type 2 diabetes mellitus without complications; Z79.84 Long term (current) use of oral hypoglycemic drugs
CPT/HCPCS: 10060; 96372; J2001; J2270